=== PATIENT | male | born 1990 | race Caucasian/White ===

== ENCOUNTER 2023-08-26 06:01 | Day surgery (SDC) | payer OTHER, SELFPAY ==
[2023-08-20 07:55] VITALS: BMI 28.8
[2023-08-26 06:44] VITALS: BP 131/86; PULSE 80; RESP 17; TEMP 36.9; O2SAT 100; BMI 28.1
[2023-08-26] MEDS: LACTATED RINGERS 1,000 ML 42 ML IV (06:58)
--- NOTE | 2023-08-26 07:44 | PM.PREOP ---
Pre-operative Note Interval Note History & Physical reviewed/Exam performed by Physician: Yes Changes to H&P: No
[2023-08-26] MEDS: CEFAZOLIN 2 GM/100 ML PREMIX 100 ML IV (08:00)
[2023-08-26] MEDS: ACETAMINOPHEN IV 1,000 MG/100 ML VIAL 400 MG IV (08:05)
--- NOTE | 2023-08-26 08:13 | SUR.OPER ---
Prone on spine table, head in foam head support, padded chest and pelvic supports, gel pad at knees, lower legs supported by pillows; nipples, genitalia and toes free of pressure, arms secured on foam padded arm boards at <90 degrees abduction. Tape over blanket at thigh secured to table.
[2023-08-26] MEDS: BUPIVACAINE 0.25% (PF) 30 ML, EPINEPHrine 0.15 MG INJ (08:18)
--- NOTE | 2023-08-26 09:00 | DI.RAD.S_ITS ---
PROCEDURE: XR LUMBAR SPINE 2-3V INDICATIONS: L5 MICRODISCECTOMY TECHNIQUE: Fluoroscopic guidance utilized for a L5 microdiscectomy. COMPARISON: None. FINDINGS: Fluoroscopic images submitted for a L5 microdiscectomy. Please see operative note for further discussion. IMPRESSION: Fluoroscopic guidance. Dictated by: Michael Pierson M.D. on 08/26/2023 at 11:50 Approved by: Michael Pierson M.D. on 08/26/2023 at 11:50
--- NOTE | 2023-08-26 09:09 | PM.OP.1 ---
Operative Date/Time/Diagnoses Date of procedure: 08/26/23 Time of procedure: 07:40 Pre-op diagnosis: 1. L5-S1 disc herniation 2. Lumbar radiculopathy Post-op diagnosis: same Procedure & Clinicians Procedure: 1. Left L5-S1 microdiscectomy 2. Utilization of microsurgical technique and operating microscope Same procedure as scheduled: Yes Indications: Patient has been having several month history of back pain and worsening lumbar radiculopathy. Patient's MRI shows a large L5-S1 left disc herniation with impingement of the left S1 nerve root correlating with patient's symptoms. Patient failed multiple conservative management with worsening pain weakness and numbness in her lower extremity. Patient has been having difficulty performing activity of daily living. After discussing risks benefits of treatment options, patient elected proceed with surgery. Surgeon: Neo Goodwin Dobby Loom Chain Pegger: Aimee Mason Click Yes if Unassisted: No Anesthesia Type: General Operative Notes Closure Type: primary Specimen(s): none sent Estimated Blood Loss (mL): 5 Blood products transfused: none Procedure in detail: Patient was seen in the preoperative area. Risks and benefits of the surgery was discussed with the patient. Informed consent was obtained from the patient and placed in the chart. Surgical site was marked. Patient was taken to the operative room. General anesthesia was administered. Prophylactic antibiotic was given to the patient less than 30 min before the incision was made. Patient was placed into a prone position on the [place] table. Patient's back was then prepped and draped in the sterile fashion. Time-out was performed at this time. Using AP and lateral C-arm imaging the interval between L5-S1 was identified and marked on patient's back. A 1 inch incision 1 in from midline was made on the left side. The fascia was incised in line with skin incision. Globus MARS retractors was placed inside the incision and docked onto the L5 lamina. Using microsurgical technique and operating microscope, a L5 laminotomy was performed using a Kerrison rongeur. Liagamentum flavum was resected at the site of the laminotomy. The disc space at L5-S1 was identified. Microdiscectomy was performed by incising the annulus with #11 blade. Microcurettes and pituitary was used to removed herniated disc fragments of disc from the epidural space. There was significant amount of adhesion due to the chronic nature of the dis herniation. The scar tissue was carefully resected during the process of microdiscectomy. After the microdiskectomy was completed, the area medial lateral superior and inferior to the area of the microdiskectomy was inspected and explored using a micro curette. No other impinging structure was identified. The wound was then irrigated with sterile normal saline. 40 mg Depo-Medrol was placed into the epidural space. The deep fascia was closed with 1-0 Vicryl. The subcutaneous tissue was closed with 2-0 Vicryl. The skin was closed with skin tanmay. Patient tolerated the procedure well. There were no complications. Patient was transferred recovery room in stable condition. Complications: none Post-operative Condition: stable Disposition: PACU Plan for aftercare: Discharge to home
[2023-08-26 09:17] VITALS: BP 135/67; PULSE 101; RESP 17; TEMP 36.8; O2SAT 96
[2023-08-26 09:22] VITALS: BP 126/76; PULSE 96; RESP 12; O2SAT 98
[2023-08-26] MEDS: OXYCODONE IR 5 MG TABLET PO (09:25)
[2023-08-26 09:27] VITALS: BP 137/83; PULSE 98; RESP 12; O2SAT 95
[2023-08-26 09:35] VITALS: BP 135/86; PULSE 99; RESP 21; O2SAT 96
[2023-08-26] MEDS: KETOROLAC 30 MG/ML VIAL IV (09:38)
[2023-08-26 09:45] VITALS: BP 126/86; PULSE 91; RESP 15; O2SAT 97
== END 2023-08-26 09:59 | disposition home or self-care (01) ==
PROVIDERS: Referring Provider Orthopaedic Surgery Orthopaedic Surgery of the Spine; Visit Provider Orthopaedic Surgery Orthopaedic Surgery of the Spine
PROC: (CPT 63030; principal; 2023-08-26 07:45)
DX: M51.26 Other intervertebral disc displacement, lumbar region (principal)
CPT/HCPCS: 63030; 72100; 76000; J0136; J0171; J0330; J0690; J1170; J1885; J2250; J2405; J2704; J2919; J3010